=== PATIENT | male | born 1955 | race Asian ===

== ENCOUNTER → 2018-01-07 | Outpatient (CLI) | payer OTHER ==
[~2018-01-07] MED LIST: BIS5 PO; CEPH-13 PO; DOCU100T19 PO
[2018-01-07 12:46] LABS: PLATELET COUNT, AUTOMATED 234 K/uL (150-450)
== END ==
LOC: LAB 12:25
PROVIDERS: ATTEND Orthopaedic Surgery Hand Surgery
DX: M79.89 Other specified soft tissue disorders (principal); M79.642 Pain in left hand; M19.90 Unspecified osteoarthritis, unspecified site
CPT/HCPCS: 36415; 84550; 85025; 85651; 86038; 86140; 86430

== ENCOUNTER 2019-01-24 08:15 | Outpatient (RCR) | payer OTHER ==
--- NOTE | 2018-10-31 10:27 | PT INITIAL EVALUATION ---
MEDICAL DIAGNOSIS: L TKA, B primary osteoarthritis of knee TREATMENT DIAGNOSIS: L TKA DATE OF ONSET: 10/29/18 SUBJECTIVE: Ahswin is a 63 year old male presenting to physical therapy following a L TKA on October 29, 2018. Pt reports having no previous injury to the L knee but does state that he has had a R knee arthroplasty in the past. 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 Pt states that his pain is the worst at night and rates it to be a 7/10, the pain is felt across the front of the knee. Pt states that outside of his pain medications ice seems to make the pain lessen. Pt currently rates his pain to be a 5/10. REHAB PROBLEM LIST: Increased Pain Decreased ROM Decreased Strength Decreased Endurance Decreased Function Decreased ADL's Decreased Mobility Decreased Gait PREVIOUS MEDICAL HISTORY: See EMR OBJECTIVE: Pt's incision site is looking good, only one spot that presented with minimal bleeding on the distal portion of the incision. ROM: LE Knee ROM (L, R): ext: -15, 2, flexion: 74, 132 Strength: LE MMT (L, R): Hip flex: 3+, 4+, hip ext: 4, 5, hip abd: 5, 5, hip add: 5, 5, knee ext: not tested at this time, 5, knee flex: not tested at this time, 5, Ankle DF: 5, 5, Ankle PF: 5, 5, Quad la+ degrees Gait: Pt is currently using a FWW for community and household distances for stability and support. ASSESSMENT: Patient presents to physical therapy with signs and symptoms consistent with a L TKA. Physical therapy is indicated for this patient to address the above impairments and limitations to allow patient to return to full function and independence with ADL's as well as occupational duties. Short Term Goals In 3 weeks, patient will improve L LE ROM equal to the contralateral limb to improve overall function with ADL's and to improve gait patterns. In 3 weeks, pt will no longer require the use of an assistive device for household or community distances to improve overall function with ADL's. In 6 weeks, pt will improve overall B LE MMT to 5/5 to improve overall function with ADL's as well as occupational duties. In 6 weeks, pt will be able to stand on one leg for 30 seconds without any assistance to improve function with ADL's and occupational duties. 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 PLAN: Patient to be seen for Manual Therapy/STM/MET Strengthening/condition Ice/Heat Range of Motion Ultrasound Stretching Iontophoresis Neuromuscular Re-ed Closed Chain Program Electrical Stim Posture/Body mechanics Gait Trg/Balance Trg Biofeedback Home Exercise Program Therapeutic Activities 3x/Week for 6 Weeks If you have any questions, comments, or concerns about this report or plan, please contact me at . Thank you, Guillermina Escalante, PT, DPT, CLT Zoraida Galindo, SPT This Physical Therapist was present for the entire physical therapy session directing the services, making the skilled judgement, and was not engaged in treating another patient or doing another task at the same time as the treatment session. CHRIST
--- NOTE | 2018-11-08 10:35 | PT PLAN OF CARE ---
Physician: Dr. Yao Mirza MD Appointment: 11/12/18 Patient is being seen: 3x/week Therapist: Carisa Walker PT Medical Diagnosis: L TKA, B primary osteoarthritis of knee Treatment Diagnosis: L TKA Date of Onset: 10/29/18 Date of Initial Evaluation: 10/31/18 Date patient was last seen: 11/08/18 Number of treatments: 4 Number of cancellations/No shows: 0 INTERVENTIONS: TKA ROM, Strengthening/condition, edema taping, e-stim GOALS: In 3 weeks, patient will improve L LE ROM equal to the contralateral limb to improve overall function with ADL's and to improve gait patterns. Progressing In 3 weeks, pt will no longer require the use of an assistive device for household or community distances to improve overall function with ADL's. not met In 6 weeks, pt will improve overall B LE MMT to 5/5 to improve overall function with ADL's as well as occupational duties. In 6 weeks, pt will be able to stand on one leg for 30 seconds without any assistance to improve function with ADL's and occupational duties. 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 all progressing Patient Compliance: Excellent Prognosis: Excellent Reasons for continuing therapy: S:Cesar Garcia rates L knee pain 6/10 with ambulation and at night. He's struggling with ROM at home. Posture: L knee flexed 25 degrees. ROM: L knee A/PROM, in degrees: -25/15 - 70/95 degrees, strong pain end ROM each direction. Gait: Walker, step to, reduced L knee motion. Quad la+ degrees A/P: Jose Ortiz is struggling with ROM due to pain end ROM. We were able to reach 95 deg. with strong e-stim during ROM. Would you consider a home CPM rental? There's CPM providers here in [place]. If you agree, we'll continue to goals set. Thank you. CHRIST
--- NOTE | 2018-12-04 07:21 | PT PLAN OF CARE ---
Physician: Dr. Yao Mirza MD Patient is being seen: 3x/Week Therapist: Guillermina Escalante, PT, DPT, CLT Medical Diagnosis: L TKA, B primary osteoarthritis of knee Treatment Diagnosis: L TKA Date of Onset: 10/29/18 Date of Initial Evaluation: 10/31/18 Date patient was last seen: 12/02/18 Number of treatments: 14 Number of cancellations/No shows: 0 INTERVENTIONS: Manual Therapy/STM/MET Strengthening/condition Ice/Heat Range of Motion Ultrasound Stretching Iontophoresis Neuromuscular Re-ed Closed Chain Program Electrical Stim Posture/Body mechanics Gait Trg/Balance Trg Biofeedback Home Exercise Program Therapeutic Activities GOALS: In 3 weeks, patient will improve L LE ROM equal to the contralateral limb to improve overall function with ADL's and to improve gait patterns. In Progress In 3 weeks, pt will no longer require the use of an assistive device for household or community distances to improve overall function with ADL's. In Progress In 6 weeks, pt will improve overall B LE MMT to 5/5 to improve overall function with ADL's as well as occupational duties. In Progress In 6 weeks, pt will be able to stand on one leg for 30 seconds without any assistance to improve function with ADL's and occupational duties. 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 Status of Patient's Goals: In Progress Patient Compliance: Good Prognosis: Excellent Reasons for continuing therapy: Nolan at this time shows near full return in ROM in the L knee with lingering deficits in terminal extension likely secondary to lingering swelling. Pt shows improved quad activation with regain in strength in most hip and ankle musculature. Further PT is indicated for this patient to continue with gains in ROM as well as progress towards goals of strength and stability. ROM: LE Knee ROM (L, R): ext: -2, 2, flexion: 130, 132 Strength: LE MMT (L, R): Hip flex: 4, 4+, hip ext: 4, 5, hip abd: 5, 5, hip add: 5, 5, knee ext: 4, 5, knee flex: 4, 5, Ankle DF/PF: 5, 5 Quad la+ degrees If you have any questions, please feel free to contact me at [phone]. Thank you, Guillermina Escalante, PT, DPT, CLT MTDD
--- NOTE | 2018-12-27 13:55 | PT PLAN OF CARE ---
Physician: Dr. Yao Mirza MD Patient is being seen: 3x/Week Therapist: Guillermina Escalante, PT, DPT, CLT Medical Diagnosis: L TKA, B primary osteoarthritis of knee Treatment Diagnosis: L TKA Date of Onset: 10/29/18 Date of Initial Evaluation: 10/31/18 Date patient was last seen: 12/27/18 Number of treatments: 24 Number of cancellations/No shows: 0 INTERVENTIONS: Manual Therapy/STM/MET Strengthening/condition Ice/Heat Range of Motion Ultrasound Stretching Iontophoresis Neuromuscular Re-ed Closed Chain Program Electrical Stim Posture/Body mechanics Gait Trg/Balance Trg Biofeedback Home Exercise Program Therapeutic Activities GOALS: In 3 weeks, patient will improve L LE ROM equal to the contralateral limb to improve overall function with ADL's and to improve gait patterns. MET In 3 weeks, pt will no longer require the use of an assistive device for household or community distances to improve overall function with ADL's. MET In 6 weeks, pt will improve overall B LE MMT to 5/5 to improve overall function with ADL's as well as occupational duties. In Progress In 6 weeks, pt will be able to stand on one leg for 30 seconds without any assistance to improve function with ADL's and occupational duties. 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 Status of Patient's Goals: 3/4 MET, 1/4 In Progress Patient Compliance: Good Prognosis: Excellent Reasons for continuing therapy: Nolan shows great return to functional status with improvement in strengthening and ROM of the L knee. Pt remains to have stiff end feel in extension on the L with AROM lacking a few degrees compared to AAROM. Other lingering deficits include stair ambulation and squatting. Further PT to focus on improving strength and ROM for return to full ADL's and recreational activities. ROM: LE Knee ROM (L, R): ext: 0, 2, flexion: 133, 132 Strength: LE MMT (L, R): Hip flex: 4, 4+, hip ext: 5, 5, hip abd: 5-, 5-, hip add: 5, 5, knee ext: 5-, 5, knee flex: 5-, 5, Ankle DF/PF: 5, 5 Quad la-3 degrees Balance: 4 Stage Balance: SLS B at 30 seconds If you have any questions, please feel free to contact me at [phone]. Thank you, Guillermina Escalante, PT, DPT, CLT IFTIKHARD
--- NOTE | 2019-01-10 14:45 | PT PLAN OF CARE ---
Physician: Dr. Yao Mirza MD Patient is being seen: 2x/Week Therapist: Guillermina Escalante, PT, DPT, CLT Medical Diagnosis: L TKA, B primary osteoarthritis of knee Treatment Diagnosis: L TKA Date of Onset: 10/29/18 Date of Initial Evaluation: 10/31/18 Date patient was last seen: 01/10/19 Number of treatments: 30 Number of cancellations/No shows: 0 INTERVENTIONS: Manual Therapy/STM/MET Strengthening/condition Ice/Heat Range of Motion Ultrasound Stretching Iontophoresis Neuromuscular Re-ed Closed Chain Program Electrical Stim Posture/Body mechanics Gait Trg/Balance Trg Biofeedback Home Exercise Program Therapeutic Activities GOALS: In 3 weeks, patient will improve L LE ROM equal to the contralateral limb to improve overall function with ADL's and to improve gait patterns. MET In 3 weeks, pt will no longer require the use of an assistive device for household or community distances to improve overall function with ADL's. MET In 6 weeks, pt will improve overall B LE MMT to 5/5 to improve overall function with ADL's as well as occupational duties. In Progress In 6 weeks, pt will be able to stand on one leg for 30 seconds without any assistance to improve function with ADL's and occupational duties. 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 Status of Patient's Goals: 3/4 MET, /4 In Progress Patient Compliance: Good Prognosis: Excellent Reasons for continuing therapy: Nolan shows continued ease of ROM into end range flexion and ext without onset of pain. Strength continues to make improvements at this time with pt no able to perform eccentric lowering going down stairs with good knee control and alignment. Pt occasionally continues to have IT band tension symptoms which is improving overall with continued HEP stretching. Further PT is indicated for Nolan to return to prior level of function with ADL's and recreational activities. ROM: LE Knee ROM (L, R): ext: 0, 2, flexion: 133, 132 Strength: LE MMT (L, R): Hip flex: 4, 4+, hip ext: 5, 5, hip abd: 5-, 5-, hip add: 5, 5, knee ext: 5-, 5, knee flex: 5-, 5, Ankle DF/PF: 5, 5 Quad la-3 degrees Balance: 4 Stage Balance: SLS B at 30 seconds If you have any questions, please feel free to contact me at [phone]. Thank you, Guillermina Escalante, PT, DPT, CLT CHRIST
--- NOTE | 2019-01-24 15:15 | PT PLAN OF CARE ---
Physician: Dr. Yao Mirza MD Patient is being seen: Guillermina Escalante PT, DPT, CLT Therapist: Guillermina Escalante PT, DPT, CLT Medical Diagnosis: L TKA, B primary osteoarthritis of knee Treatment Diagnosis: L TKA Date of Onset: 10/29/18 Date of Initial Evaluation: 10/31/18 Date patient was last seen: 01/24/19 Number of treatments: 36 Number of cancellations/No shows: 0 INTERVENTIONS: Manual Therapy/STM/MET Strengthening/condition Ice/Heat Range of Motion Ultrasound Stretching Iontophoresis Neuromuscular Re-ed Closed Chain Program Electrical Stim Posture/Body mechanics Gait Trg/Balance Trg Biofeedback Home Exercise Program Therapeutic Activities GOALS: In 3 weeks, patient will improve L LE ROM equal to the contralateral limb to improve overall function with ADL's and to improve gait patterns. MET In 3 weeks, pt will no longer require the use of an assistive device for household or community distances to improve overall function with ADL's. MET In 6 weeks, pt will improve overall B LE MMT to 5/5 to improve overall function with ADL's as well as occupational duties. MET In 6 weeks, pt will be able to stand on one leg for 30 seconds without any assistance to improve function with ADL's and occupational duties. 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 Status of Patient's Goals: 02/27 MET Patient Compliance: Good Prognosis: Excellent Reasons for discharge from therapy: Nolan is to discharge from physical therapy at this time secondary to completion of all functional goals. Nolan shows good strength with return to functional and recreational mobility with ADL's. Pt is able to hike up and down hills and ambulate on uneven surfaces without difficulty. Upon discharge pt is to continue with strengthening, ROM and IT band stretching of B LE to maintain gains in strength for recreational summer activities. ROM: LE Knee ROM (L, R): ext: 0, 0, flexion: 134, 137 Strength: LE MMT (L, R): Hip flex: 5, 5, hip ext: 5, 5, hip abd: 5, 5, hip add: 5, 5, knee ext: 5, 5, knee flex: 5-, 5, Ankle DF/PF: 5, 5 Quad la degrees Balance: 4 Stage Balance: SLS B at 30 seconds If you have any questions, please feel free to contact me at [phone]. Thank you, Guillermina Escalante, PT, DPT, CLT MTDD
== END 2019-01-24 18:00 | disposition home or self-care (01) ==
LOC: PT 08:15
PROVIDERS: ATTEND Orthopaedic Surgery Pediatric Orthopaedic Surgery
DX: Z96.652 Presence of left artificial knee joint (principal); M17.0 Bilateral primary osteoarthritis of knee; Z47.1 Aftercare following joint replacement surgery
CPT/HCPCS: 97161